=== PATIENT | male | born 1950 | race African-American/Black ===

== ENCOUNTER 2018-08-30 23:00 | Emergency (ER) | payer SELFPAY ==
[~2018-08-30] VITALS: Ht 172.7 cm; Wt 65.8 kg
[2018-08-30] MEDS ORDERED: CEVIMELINE 30 MG (23:43)
[2018-08-30] MEDS ORDERED: BENAZEPRIL (23:43)
[2018-08-30] MEDS ORDERED: AMLODIPINE (23:43)
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
--- NOTE | 2018-08-31 00:07 | NUR ---
Dr. Zelaya, , at bedside to evaluate pt.
[2018-08-31] MEDS ORDERED: TDAP DIPH,PERTUSS,TET VAC/PF 0.5 ML DISP.SYRIN IM ONE ×2 (00:30→00:35)
--- NOTE | 2018-08-31 00:48 | NUR ---
Pt went down to radiology dept for xrays & CT scan.
--- NOTE | 2018-08-31 01:15 | NUR ---
Pt back from radiology dept, placed back in room 3A. Family at bedside. No acute distress noted.
--- NOTE | 2018-08-31 01:57 | NUR ---
Patient discharged to home in stable conditon. Written and verbal after care instructions given. Patient verbalizes understanding of instructions. Pt left ER in steady gait w and family. No acute distress noted. All belongings with pt. VSS.
[2018-08-31 01:59] VITALS: BP 128/86
== END 2018-08-31 02:00 | disposition home or self-care (01) ==
LOC: ER 23:03
DX: S20.211A Contusion of right front wall of thorax, initial encounter (principal); S46.911A Strain of unspecified muscle, fascia and tendon at shoulder and upper arm level, right arm, initial encounter; S09.90XA Unspecified injury of head, initial encounter; I10 Essential (primary) hypertension; Z79.899 Other long term (current) drug therapy; V49.9XXA Car occupant (driver) (passenger) injured in unspecified traffic accident, initial encounter; Y93.89 Activity, other specified; Y92.410 Unspecified street and highway as the place of occurrence of the external cause; Y99.8 Other external cause status
CPT/HCPCS: 70450; 71101; 73020; 90715; 93005; A4663